=== PATIENT | female | born 1980 | race Caucasian/White ===

== ENCOUNTER 2020-09-30 21:45 | Emergency (ER) | payer OTHER ==
[2020-09-30 21:59] VITALS: BP 123/79; PULSE 85; TEMP 98.9; BMI 30.9
[2020-09-30 23:53] LABS: HCG,QUALITATIVE URINE Negative
[2020-09-30 23:55] LABS: BASO % 0.9 % (0-2.0); EOS % 5.8 % (0-4.5); HEMATOCRIT 36.1 % (32.4-45.2); HEMOGLOBIN 12.3 GM/dL (10.7-15.3); LYMPH % 34.7 % (8-40); MCH 28.3 pg (25.7-33.7); MEAN CELL VOLUME 83.4 fl (80-96); MEAN PLT VOLUME 9.9 fl (7.5-11.1); MONO % 6.9 % (3.8-10.2); NEUT % 51.7 % (42.8-82.8); PLATELET COUNT 230 K/MM3 (134-434); RBC 4.32 M/mm3 (3.60-5.2); RDW 13.2 % (11.6-15.6); WHITE BLOOD COUNT 7.6 K/mm3 (4.0-10.0)
[2020-10-01 00:06] LABS: URINE APPEARANCE CLEAR; URINE BILIRUBIN NEGATIVE (NEGATIVE); URINE COLOR YELLOW; URINE GLUCOSE (UA) 3+ (NEGATIVE); URINE KETONE NEGATIVE (NEGATIVE); URINE LEUK ESTERASE NEGATIVE (NEGATIVE); URINE NITRITE NEGATIVE (NEGATIVE); URINE PROTEIN NEGATIVE (NEGATIVE)
[2020-10-01 00:10] LABS: BLOOD UREA NITROGEN 25.8 mg/dL (7-18)
[2020-10-01 00:11] LABS: ALBUMIN 3.8 g/dl (3.4-5.0)
[2020-10-01 00:14] LABS: CREATININE 0.4 mg/dL (0.55-1.3)
[2020-10-01 00:15] LABS: BILIRUBIN,TOTAL 0.5 mg/dL (0.2-1); TOT PROT 6.7 g/dl (6.4-8.2)
[2020-10-01] MEDS ORDERED: INSULIN REGULAR HUMAN 100 UNITS/ML *VIAL SQ ONE (00:22)
[2020-10-01] MEDS ORDERED: AMPICILLIN NA/SULBACTAM NA 1.5 GM in SODIUM CHLORIDE 100 ML IVPB ONE (00:26)
== END 2020-10-01 01:41 | disposition home or self-care (01) ==
LOC: JER 21:45 → EDBD 21:45 → JER 10-01 01:41
DX: R10.32 Left lower quadrant pain (principal)
CPT/HCPCS: 36415; 80053; 81003; 84703; 85025; 99284-25

== ENCOUNTER 2023-08-02 06:28 | Inpatient (IN) | payer OTHER ==
[2023-08-02] MEDS ORDERED: IBUPROFEN 400 MG TABLET (FP) PO ONE (08:13)
[2023-08-02] MEDS: IBUPROFEN 600 MG TABLET (FP) PO ONE (08:15)
[2023-08-02] MEDS: SODIUM CHLORIDE 0.9% 500 ML INFUS.BAG IV ONE (08:30)
[2023-08-02 08:49] LABS: EPI CELLS 4 /uL (0-25.1); HYALINE CASTS 1 /uL (0-3.1); PH,URINE 6.5 (5.0-8.0); URINE APPEARANCE CLOUDY; URINE BILIRUBIN NEGATIVE (NEGATIVE); URINE COLOR YELLOW; URINE GLUCOSE (UA) NEGATIVE (NEGATIVE); URINE KETONE TRACE (NEGATIVE); URINE LEUK ESTERASE 3+ (NEGATIVE); URINE NITRITE POSITIVE (NEGATIVE); URINE PROTEIN 1+ (NEGATIVE); URINE RBC 19 /uL (0-23.9); URINE WBC 716 /uL (0-25.8)
[2023-08-02 09:07] LABS: BASO % 0.7 % (0-2.0); EOS % 0.4 % (0-4.5); HEMATOCRIT 28.2 % (32.4-45.2); HEMOGLOBIN 9.5 GM/dL (10.7-15.3); LYMPH % 5.9 % (8-40); MCH 27.6 pg (25.7-33.7); MCHC 33.8 g/dl (32.0-36.0); MEAN CELL VOLUME 81.7 fl (80-96); MEAN PLT VOLUME 8.3 fl (7.5-11.1); MONO % 8.5 % (3.8-10.2); NEUT % 84.5 % (42.8-82.8); PLATELET COUNT 376 10^3/uL (134-434); RBC 3.45 M/mm3 (3.60-5.2); RDW 15.2 % (11.6-15.6); WHITE BLOOD COUNT 15.6 K/mm3 (4.0-10.0)
[2023-08-02 10:03] LABS: POTASSIUM 4.4 mmol/L (3.5-5.1)
[2023-08-02 10:05] LABS: BLOOD UREA NITROGEN 10.9 mg/dL (7-18); CALCIUM 8.4 mg/dL (8.5-10.1)
[2023-08-02 10:08] LABS: CREATININE 0.8 mg/dL (0.55-1.3)
[2023-08-02 10:10] LABS: BILIRUBIN,TOTAL 1.4 mg/dL (0.2-1); TOT PROT 7.9 g/dl (6.4-8.2)
[2023-08-02] MEDS ORDERED: CEFTRIAXONE 1 GM/50 ML BAG ONE (10:58)
[2023-08-02] MEDS: CEFTRIAXONE 1,000 MG in DEXTROSE 5%-WATER - 50 ML IVPB ONE (10:59)
[2023-08-02 11:22] LABS: MAGNESIUM 1.7 mg/dL (1.8-2.4)
[2023-08-02] MEDS ORDERED: INSULIN (NOVOLOG) ASPART 100 UNITS/ML 10ML VIAL ONE (11:24)
[2023-08-02] MEDS: INSULIN ASPART SLIDING SCALE (NOVOLOG) 1 VIAL SQ SCH (11:27)
[2023-08-02 14:18] LABS: URINE BACTERIA 64 /uL (0-1359)
[2023-08-02] MEDS: ACETAMINOPHEN 325 MG TABLET (FP) PO PRN (18:57)
[2023-08-02] MEDS: HEPARIN NA (PORCINE) 5,000 UNITS/ML 1ML VIAL SQ SCH (21:35)
[2023-08-02] MEDS: INSULIN (LEVEMIR) 100 UNITS/ML UNITS SQ SCH (21:37)
[2023-08-02] MEDS ORDERED: INSULIN (LEVEMIR) 100 UNITS/ML UNITS SQ SCH (22:00)
[2023-08-03] MEDS: CEFTRIAXONE 1 GM in DEXTROSE 5%-WATER - 50 ML IVPB SCH (09:10)
[2023-08-03] MEDS: SODIUM CHLORIDE 1,000 ML IV SCH ×2 (09:15→16:49)
[2023-08-03 09:33] LABS: BASO % 0.8 % (0-2.0); EOS % 1.6 % (0-4.5); HEMATOCRIT 26.5 % (32.4-45.2); HEMOGLOBIN 9.2 GM/dL (10.7-15.3); LYMPH % 7.4 % (8-40); MCHC 34.6 g/dl (32.0-36.0); MEAN CELL VOLUME 80.8 fl (80-96); MEAN PLT VOLUME 8.9 fl (7.5-11.1); MONO % 7.3 % (3.8-10.2); NEUT % 82.9 % (42.8-82.8); PLATELET COUNT 351 10^3/uL (134-434); RBC 3.28 M/mm3 (3.60-5.2); RDW 15.4 % (11.6-15.6); WHITE BLOOD COUNT 10.6 K/mm3 (4.0-10.0)
[2023-08-03 09:52] LABS: POTASSIUM 3.7 mmol/L (3.5-5.1)
[2023-08-03 10:04] LABS: CALCIUM 8.2 mg/dL (8.5-10.1)
[2023-08-03 10:05] LABS: ALBUMIN 2.6 g/dl (3.4-5.0)
[2023-08-03 10:08] LABS: CREATININE 0.6 mg/dL (0.55-1.3)
[2023-08-03 10:10] LABS: BILIRUBIN,TOTAL 0.8 mg/dL (0.2-1); TOT PROT 7.1 g/dl (6.4-8.2)
[2023-08-03 15:24] VITALS: BMI 27.6
[2023-08-03] MEDS ORDERED: INSULIN (NOVOLOG) ASPART 100 UNITS/ML 10ML VIAL ONE (16:50)
[2023-08-03] MEDS: PHENAZOPYRIDINE HCL 100 MG TABLET (FP) PO SCH (17:46)
[2023-08-04 06:51] VITALS: RESP 18
[2023-08-04 06:53] LABS: BASO % 1.1 % (0-2.0); EOS % 2.2 % (0-4.5); HEMATOCRIT 25.3 % (32.4-45.2); HEMOGLOBIN 8.6 GM/dL (10.7-15.3); MCH 27.7 pg (25.7-33.7); MCHC 34.1 g/dl (32.0-36.0); MEAN CELL VOLUME 81.3 fl (80-96); MEAN PLT VOLUME 9.2 fl (7.5-11.1); MONO % 9.3 % (3.8-10.2); NEUT % 75.4 % (42.8-82.8); PLATELET COUNT 360 10^3/uL (134-434); RBC 3.12 M/mm3 (3.60-5.2); RDW 15.1 % (11.6-15.6); WHITE BLOOD COUNT 8.6 K/mm3 (4.0-10.0)
[2023-08-04 07:01] LABS: POTASSIUM 3.6 mmol/L (3.5-5.1)
[2023-08-04 07:06] LABS: BLOOD UREA NITROGEN 9.9 mg/dL (7-18); CALCIUM 8.3 mg/dL (8.5-10.1)
[2023-08-04 07:09] LABS: CREATININE 0.6 mg/dL (0.55-1.3)
[2023-08-04 07:51] VITALS: BP 111/72; PULSE 88; TEMP 98.6
[2023-08-04] MEDS: CEPHALEXIN MONOHYDRATE 500 MG CAPSULE (UD) PO SCH (09:38)
== END 2023-08-04 11:57 | disposition home or self-care (01) | DRG 463 ==
LOC: JER 06:28 → JERBED 10:05 → J7W 14:11 → OBSVTOIN 08-04 09:11
PROVIDERS: ADMIT Internal Medicine; ATTEND Nurse Practitioner Acute Care
DX: N10 Acute pyelonephritis (principal); E11.9 Type 2 diabetes mellitus without complications; R51.9 Headache, unspecified; B96.20 Unspecified Escherichia coli [E. coli] as the cause of diseases classified elsewhere; R50.9 Fever, unspecified; R53.81 Other malaise; R11.0 Nausea
CPT/HCPCS: 0241U-QW; 36415; 80048; 80053; 81003; 82962; 83735; 84703; 85025; 87086; 87651; 93005; 93010; 99285-25; G0378; J1644

== ENCOUNTER 2023-08-15 09:16 | Inpatient (IN) | payer OTHER ==
[2023-08-15 09:25] VITALS: BMI 27.4
[2023-08-15] MEDS: SODIUM CHLORIDE 0.9% 500 ML INFUS.BAG IV ONE (10:37)
[2023-08-15 10:43] LABS: BASO % 0.9 % (0-2.0); EOS % 0.8 % (0-4.5); HEMATOCRIT 30.3 % (32.4-45.2); LYMPH % 9.2 % (8-40); MCH 27.1 pg (25.7-33.7); MCHC 33.1 g/dl (32.0-36.0); MEAN CELL VOLUME 81.8 fl (80-96); MEAN PLT VOLUME 7.8 fl (7.5-11.1); MONO % 6.8 % (3.8-10.2); NEUT % 82.3 % (42.8-82.8); PLATELET COUNT 470 10^3/uL (134-434); RDW 16.7 % (11.6-15.6); WHITE BLOOD COUNT 16.1 K/mm3 (4.0-10.0)
[2023-08-15 10:45] LABS: EPI CELLS 1 /uL (0-25.1); HCG,QUALITATIVE URINE Negative; HYALINE CASTS 0 /uL (0-3.1); PH,URINE 6.5 (5.0-8.0); URINE APPEARANCE CLEAR; URINE BACTERIA >9,000 /uL (0-1359); URINE BILIRUBIN NEGATIVE (NEGATIVE); URINE COLOR YELLOW; URINE GLUCOSE (UA) NEGATIVE (NEGATIVE); URINE KETONE NEGATIVE (NEGATIVE); URINE LEUK ESTERASE 3+ (NEGATIVE); URINE NITRITE NEGATIVE (NEGATIVE); URINE PROTEIN TRACE (NEGATIVE); URINE RBC 15 /uL (0-23.9); URINE UROBILINOGEN 0.2 mg/dL (0.2-1.0); URINE WBC 648 /uL (0-25.8)
[2023-08-15 11:00] LABS: POTASSIUM 4.3 mmol/L (3.5-5.1)
[2023-08-15 11:02] LABS: BLOOD UREA NITROGEN 9.5 mg/dL (7-18); CALCIUM 9.3 mg/dL (8.5-10.1)
[2023-08-15 11:06] LABS: CREATININE 0.8 mg/dL (0.55-1.3)
[2023-08-15 11:07] LABS: BILIRUBIN,TOTAL 0.7 mg/dL (0.2-1)
[2023-08-15 11:09] LABS: ALBUMIN 3.3 g/dl (3.4-5.0)
[2023-08-15] MEDS ORDERED: CEFTRIAXONE 2 GM in DEXTROSE 5%-WATER - 100 ML IVPB ONE (13:00)
[2023-08-15] MEDS: CEFTRIAXONE 2,000 MG in DEXTROSE 5%-WATER - 50 ML IVPB ONE (13:41)
[2023-08-15] MEDS ORDERED: ACETAMINOPHEN 325 MG TABLET (FP) ONE (14:18)
[2023-08-15] MEDS: ACETAMINOPHEN 325 MG TABLET (FP) PO PRN (14:20)
[2023-08-15] MEDS: metFORMIN HCL 500 MG TABLET (FP) PO SCH (16:25)
[2023-08-15] MEDS: INSULIN ASPART SLIDING SCALE (NOVOLOG) 1 VIAL SQ SCH (16:25)
[2023-08-15] MEDS: FLU VACCINE (FLULAVAL) PF 60 MCG/0.5 ML SYRINGE 2023-2024 IM ONE (17:37)
[2023-08-15] MEDS: ATORVASTATIN CA 10 MG TABLET (FP) PO SCH (21:21)
[2023-08-15] MEDS: PHENAZOPYRIDINE HCL 100 MG TABLET (FP) PO SCH (21:21)
[2023-08-15] MEDS: HEPARIN NA (PORCINE) 5,000 UNITS/ML 1ML VIAL SQ SCH (21:22)
[2023-08-16] MEDS: glipiZIDE 5 MG TABLET (FP) PO SCH (06:23)
[2023-08-16 08:51] LABS: BASO % 0.6 % (0-2.0); EOS % 0.6 % (0-4.5); HEMATOCRIT 28.1 % (32.4-45.2); LYMPH % 10.9 % (8-40); MCH 26.3 pg (25.7-33.7); MEAN CELL VOLUME 82.3 fl (80-96); MEAN PLT VOLUME 8.1 fl (7.5-11.1); MONO % 7.8 % (3.8-10.2); NEUT % 80.1 % (42.8-82.8); PLATELET COUNT 443 10^3/uL (134-434); RBC 3.41 M/mm3 (3.60-5.2); RDW 16.1 % (11.6-15.6); WHITE BLOOD COUNT 14.9 K/mm3 (4.0-10.0)
[2023-08-16] MEDS: SODIUM CHLORIDE 1,000 ML IV SCH (09:06)
[2023-08-16] MEDS: CEFTRIAXONE 1 GM in DEXTROSE 5%-WATER - 50 ML IVPB SCH (09:11)
[2023-08-16 09:17] LABS: POTASSIUM 3.8 mmol/L (3.5-5.1)
[2023-08-16 09:30] LABS: CALCIUM 8.6 mg/dL (8.5-10.1)
[2023-08-16 09:31] LABS: BLOOD UREA NITROGEN 11.5 mg/dL (7-18)
[2023-08-16 09:34] LABS: CREATININE 0.8 mg/dL (0.55-1.3)
[2023-08-16 09:35] LABS: TOT PROT 7.8 g/dl (6.4-8.2)
[2023-08-16 09:36] LABS: BILIRUBIN,TOTAL 0.9 mg/dL (0.2-1)
[2023-08-16] MEDS ORDERED: ENALAPRIL MALEATE 2.5 MG TABLET PO SCH ×2 (10:00)
[2023-08-16] MEDS ORDERED: ONDANSETRON 4 MG/2 ML VIAL IVPUSH PRN (18:12)
[2023-08-16] MEDS: ACETAMINOPHEN 1000 MG/100 ML BAG IVPB ONE (18:27)
[2023-08-16] MEDS: ONDANSETRON 4 MG/2 ML VIAL IVPUSH ONE (18:27)
[2023-08-16] MEDS: FAMOTIDINE 20 MG/50 ML IVPB 20 MG/50 ML MG IVPB ONE ×2 (20:41→20:45)
[2023-08-16 21:29] LABS: CALCIUM 8.5 mg/dL (8.5-10.1)
[2023-08-16 21:30] LABS: ALBUMIN 2.9 g/dl (3.4-5.0); BLOOD UREA NITROGEN 9.6 mg/dL (7-18)
[2023-08-16] MEDS: PIPERACILLIN/TAZOB 3.375 GM 3.375 GM in DEXTROSE 5%-WATER - 50 ML IVPB SCH ×2 (21:30→21:49)
[2023-08-16 21:33] LABS: CREATININE 0.8 mg/dL (0.55-1.3)
[2023-08-16 21:35] LABS: BILIRUBIN,TOTAL 0.7 mg/dL (0.2-1); TOT PROT 7.3 g/dl (6.4-8.2)
[2023-08-17 09:11] LABS: BASO % 0.7 % (0-2.0); EOS % 0.7 % (0-4.5); HEMATOCRIT 26.4 % (32.4-45.2); HEMOGLOBIN 8.7 GM/dL (10.7-15.3); LYMPH % 10.1 % (8-40); MCH 26.9 pg (25.7-33.7); MCHC 32.8 g/dl (32.0-36.0); MEAN PLT VOLUME 8.2 fl (7.5-11.1); MONO % 7.5 % (3.8-10.2); PLATELET COUNT 440 10^3/uL (134-434); RBC 3.23 M/mm3 (3.60-5.2); RDW 16.3 % (11.6-15.6)
[2023-08-17 09:25] LABS: CALCIUM 8.6 mg/dL (8.5-10.1)
[2023-08-17 09:26] LABS: ALBUMIN 2.8 g/dl (3.4-5.0); BLOOD UREA NITROGEN 9.2 mg/dL (7-18)
[2023-08-17 09:29] LABS: CREATININE 0.8 mg/dL (0.55-1.3)
[2023-08-17 09:31] LABS: BILIRUBIN,TOTAL 0.8 mg/dL (0.2-1); TOT PROT 7.4 g/dl (6.4-8.2)
[2023-08-17] MEDS: CEFTRIAXONE 2 GM in DEXTROSE 5%-WATER 100 ML IVPB SCH (15:26)
[2023-08-18] MEDS ORDERED: CEFTRIAXONE 2 GM in DEXTROSE 5%-WATER 100 ML IVPB SCH (10:00)
[2023-08-18 10:08] LABS: HEMATOCRIT 26.7 % (32.4-45.2); HEMOGLOBIN 8.7 GM/dL (10.7-15.3); MCH 26.9 pg (25.7-33.7); MCHC 32.7 g/dl (32.0-36.0); MEAN CELL VOLUME 82.5 fl (80-96); MEAN PLT VOLUME 8.3 fl (7.5-11.1); PLATELET COUNT 477 10^3/uL (134-434); RBC 3.24 M/mm3 (3.60-5.2); RDW 16.2 % (11.6-15.6); WHITE BLOOD COUNT 7.9 K/mm3 (4.0-10.0)
[2023-08-18 10:27] LABS: POTASSIUM 4.2 mmol/L (3.5-5.1)
[2023-08-18 10:31] LABS: ALBUMIN 2.8 g/dl (3.4-5.0); CALCIUM 8.8 mg/dL (8.5-10.1)
[2023-08-18 10:32] LABS: BLOOD UREA NITROGEN 7.2 mg/dL (7-18); MAGNESIUM 1.8 mg/dL (1.8-2.4)
[2023-08-18 10:34] LABS: CREATININE 0.7 mg/dL (0.55-1.3); PHOSPHOROUS 3.2 mg/dL (2.5-4.9)
[2023-08-18 10:36] LABS: BILIRUBIN,TOTAL 0.6 mg/dL (0.2-1); TOT PROT 7.5 g/dl (6.4-8.2)
[2023-08-19 10:21] LABS: HEMATOCRIT 26.9 % (32.4-45.2); HEMOGLOBIN 8.9 GM/dL (10.7-15.3); MEAN CELL VOLUME 81.9 fl (80-96); MEAN PLT VOLUME 8.2 fl (7.5-11.1); PLATELET COUNT 487 10^3/uL (134-434); RBC 3.29 M/mm3 (3.60-5.2); RDW 16.6 % (11.6-15.6); WHITE BLOOD COUNT 7.1 K/mm3 (4.0-10.0)
[2023-08-19 11:26] LABS: POTASSIUM 4.4 mmol/L (3.5-5.1)
[2023-08-19 11:34] LABS: ALBUMIN 2.9 g/dl (3.4-5.0); CALCIUM 8.6 mg/dL (8.5-10.1)
[2023-08-19 11:35] LABS: BLOOD UREA NITROGEN 6.5 mg/dL (7-18); MAGNESIUM 2.1 mg/dL (1.8-2.4)
[2023-08-19 11:37] LABS: CREATININE 0.7 mg/dL (0.55-1.3); PHOSPHOROUS 3.4 mg/dL (2.5-4.9)
[2023-08-19 11:39] LABS: TOT PROT 7.6 g/dl (6.4-8.2)
[2023-08-19 11:40] LABS: BILIRUBIN,TOTAL 0.4 mg/dL (0.2-1)
[2023-08-19 15:20] LABS: HIV INTERPRETATION NEGATIVE (NEGATIVE)
[2023-08-20 08:24] LABS: POTASSIUM 4.1 mmol/L (3.5-5.1)
[2023-08-20 08:36] LABS: HEMATOCRIT 27.2 % (32.4-45.2); HEMOGLOBIN 8.9 GM/dL (10.7-15.3); MCHC 32.9 g/dl (32.0-36.0); PLATELET COUNT 469 10^3/uL (134-434); RBC 3.31 M/mm3 (3.60-5.2); RDW 16.4 % (11.6-15.6); RETICULOCYTES 1.24 % (0.5-1.5)
[2023-08-20 08:37] LABS: ALBUMIN 2.8 g/dl (3.4-5.0); BLOOD UREA NITROGEN 8.3 mg/dL (7-18); CALCIUM 8.7 mg/dL (8.5-10.1)
[2023-08-20 08:40] LABS: CREATININE 0.6 mg/dL (0.55-1.3); PHOSPHOROUS 4.2 mg/dL (2.5-4.9)
[2023-08-20 08:42] LABS: BILIRUBIN,TOTAL 0.5 mg/dL (0.2-1); TOT PROT 7.4 g/dl (6.4-8.2)
[2023-08-21] MEDS: glipiZIDE 5 MG TABLET (FP) PO SCH (06:44)
[2023-08-21] MEDS: PIPERACILLIN/TAZOB 3.375 GM 3.375 GM in DEXTROSE 5%-WATER - 50 ML IVPB SCH (08:05)
[2023-08-21 10:24] LABS: HEMATOCRIT 28.6 % (32.4-45.2); HEMOGLOBIN 9.6 GM/dL (10.7-15.3); MCHC 33.4 g/dl (32.0-36.0); MEAN CELL VOLUME 80.8 fl (80-96); PLATELET COUNT 537 10^3/uL (134-434); RBC 3.54 M/mm3 (3.60-5.2); RDW 16.6 % (11.6-15.6); WHITE BLOOD COUNT 7.6 K/mm3 (4.0-10.0)
[2023-08-21 10:49] LABS: POTASSIUM 4.1 mmol/L (3.5-5.1)
[2023-08-21 10:54] LABS: CALCIUM 9.6 mg/dL (8.5-10.1)
[2023-08-21 10:55] LABS: ALBUMIN 3.1 g/dl (3.4-5.0); BLOOD UREA NITROGEN 13.1 mg/dL (7-18)
[2023-08-21 10:57] LABS: PHOSPHOROUS 4.7 mg/dL (2.5-4.9)
[2023-08-21 10:58] LABS: BILIRUBIN,TOTAL 0.4 mg/dL (0.2-1); CREATININE 0.8 mg/dL (0.55-1.3); TOT PROT 7.9 g/dl (6.4-8.2)
[2023-08-23] MEDS: INSULIN ASPART SLIDING SCALE (NOVOLOG) 1 VIAL SQ SCH (06:27)
[2023-08-23 16:31] LABS: EPI CELLS 10 /uL (0-25.1); HYALINE CASTS 1 /uL (0-3.1); URINE APPEARANCE CLEAR; URINE BILIRUBIN NEGATIVE (NEGATIVE); URINE COLOR DK YELLOW; URINE GLUCOSE (UA) NEGATIVE (NEGATIVE); URINE KETONE NEGATIVE (NEGATIVE); URINE LEUK ESTERASE 2+ (NEGATIVE); URINE NITRITE POSITIVE (NEGATIVE); URINE PROTEIN NEGATIVE (NEGATIVE); URINE RBC 8 /uL (0-23.9); URINE WBC 112 /uL (0-25.8)
[2023-08-24 08:14] LABS: INR 1.18 (0.83-1.09); PROTHROMBIN TIME (PATIENT) 13.7 SEC (9.7-13.0)
[2023-08-24 08:17] LABS: HEMATOCRIT 28.1 % (32.4-45.2); HEMOGLOBIN 9.2 GM/dL (10.7-15.3); MCH 26.9 pg (25.7-33.7); MCHC 32.7 g/dl (32.0-36.0); MEAN CELL VOLUME 82.2 fl (80-96); MEAN PLT VOLUME 8.1 fl (7.5-11.1); PLATELET COUNT 515 10^3/uL (134-434); RBC 3.42 M/mm3 (3.60-5.2); WHITE BLOOD COUNT 6.8 K/mm3 (4.0-10.0)
[2023-08-24 08:42] LABS: POTASSIUM 4.9 mmol/L (3.5-5.1)
[2023-08-24 08:51] LABS: BLOOD UREA NITROGEN 12.6 mg/dL (7-18)
[2023-08-24 08:52] LABS: CREATININE 0.7 mg/dL (0.55-1.3); MAGNESIUM 2.2 mg/dL (1.8-2.4)
[2023-08-24 08:53] LABS: CALCIUM 9.7 mg/dL (8.5-10.1); PHOSPHOROUS 4.7 mg/dL (2.5-4.9)
[2023-08-24] MEDS ORDERED: ONDANSETRON 4 MG/2 ML VIAL IVPUSH PRN ×2 (12:32→12:40)
[2023-08-24] MEDS ORDERED: ACETAMINOPHEN 325 MG TABLET (FP) PO PRN (12:40)
[2023-08-24 13:24] VITALS: RESP 16
[2023-08-24] MEDS: LACTATED RINGERS SOLUTION 1,000 ML IV SCH (14:08)
[2023-08-24 16:10] VITALS: BP 111/70; PULSE 73; TEMP 97.2
[2023-08-24] MEDS: INSULIN ASPART SLIDING SCALE (NOVOLOG) 1 VIAL SQ SCH (16:30)
[2023-08-24] MEDS ORDERED: HEPARIN NA (PORCINE) 5,000 UNITS/ML 1ML VIAL SQ SCH (22:00)
[2023-08-24] MEDS ORDERED: PHENAZOPYRIDINE HCL 100 MG TABLET (FP) PO SCH (22:00)
[2023-08-25] MEDS ORDERED: glipiZIDE 5 MG TABLET (FP) PO SCH (07:00)
[2023-08-25] MEDS ORDERED: CEFTRIAXONE 2 GM in DEXTROSE 5%-WATER 100 ML IVPB SCH (10:00)
== END 2023-08-24 17:44 | disposition home or self-care (01) | DRG 463 ==
LOC: JER 09:16 → JERBED 11:24 → J6S 14:34
PROVIDERS: ADMIT Internal Medicine; ATTEND Internal Medicine
PROC: 0TJB8ZZ Inspection of Bladder, Via Natural or Artificial Opening Endoscopic (ICD-10-PCS; principal; 2023-08-24 15:00)
PROC: BT00ZZZ Plain Radiography of Bladder (ICD-10-PCS; 2023-08-24 15:00)
DX: N12 Tubulo-interstitial nephritis, not specified as acute or chronic (principal); E11.65 Type 2 diabetes mellitus with hyperglycemia; D63.8 Anemia in other chronic diseases classified elsewhere; Z79.84 Long term (current) use of oral hypoglycemic drugs
CPT/HCPCS: 0241U-QW; 36415; 70492-TC; 71270-TC; 74177-TC; 76775-TC; 80048; 80053; 81003; 82728; 82962; 83036; 83540; 83550; 83605; 83615; 83690; 83735; 84100; 84443; 84702; 84703; 85025; 85027; 85045; 85610; 85651; 86038; 86140; 86160; 86225; 86480; 86850; 86900; 86901; 87040; 87086; 87186; 87389; 90686; 93306-TC; 94760; 99285-25; J0131; J1644; Q9967

== ENCOUNTER 2023-10-23 18:50 | Emergency (ER) | payer OTHER ==
[2023-10-23 18:59] VITALS: BP 109/62; PULSE 102; RESP 18; TEMP 100.4; BMI 26.6
[2023-10-23] MEDS ORDERED: ACETAMINOPHEN INJECTION 100 ML IVPB ONE (19:39)
[2023-10-23] MEDS ORDERED: ONDANSETRON 4 MG/2 ML VIAL ONE (19:39)
[2023-10-23] MEDS: SODIUM CHLORIDE 0.9% 500 ML INFUS.BAG IV ONE (19:56)
[2023-10-23] MEDS: ONDANSETRON 4 MG/2 ML VIAL IVPUSH ONE (19:57)
[2023-10-23] MEDS: ACETAMINOPHEN 1000 MG/100 ML BAG IVPB ONE (19:57)
[2023-10-23 20:06] LABS: BASO % 0.8 % (0-2.0); EOS % 0.5 % (0-4.5); HEMATOCRIT 27.2 % (32.4-45.2); HEMOGLOBIN 8.8 GM/dL (10.7-15.3); LYMPH % 13.9 % (8-40); MCH 26.3 pg (25.7-33.7); MCHC 32.5 g/dl (32.0-36.0); MEAN CELL VOLUME 80.9 fl (80-96); MEAN PLT VOLUME 7.8 fl (7.5-11.1); MONO % 9.7 % (3.8-10.2); NEUT % 75.1 % (42.8-82.8); PLATELET COUNT 355 10^3/uL (134-434); RBC 3.36 M/mm3 (3.60-5.2); RDW 15.6 % (11.6-15.6); WHITE BLOOD COUNT 13.2 K/mm3 (4.0-10.0)
[2023-10-23 20:25] LABS: POTASSIUM 4.2 mmol/L (3.5-5.1)
[2023-10-23 20:29] LABS: BLOOD UREA NITROGEN 10.9 mg/dL (7-18); CALCIUM 8.7 mg/dL (8.5-10.1); MAGNESIUM 1.9 mg/dL (1.8-2.4)
[2023-10-23 20:32] LABS: CREATININE 0.9 mg/dL (0.55-1.3); PHOSPHOROUS 3.1 mg/dL (2.5-4.9)
[2023-10-23 20:34] LABS: TOT PROT 7.6 g/dl (6.4-8.2)
[2023-10-23 20:35] LABS: BILIRUBIN,TOTAL 0.8 mg/dL (0.2-1)
[2023-10-23 21:41] LABS: EPI CELLS 14 /uL (0-25.1); HYALINE CASTS 0 /uL (0-3.1); PH,URINE 6.5 (5.0-8.0); URINE APPEARANCE CLOUDY; URINE BACTERIA >9,000 /uL (0-1359); URINE BILIRUBIN NEGATIVE (NEGATIVE); URINE COLOR YELLOW; URINE GLUCOSE (UA) NEGATIVE (NEGATIVE); URINE KETONE NEGATIVE (NEGATIVE); URINE LEUK ESTERASE 3+ (NEGATIVE); URINE NITRITE POSITIVE (NEGATIVE); URINE PROTEIN 1+ (NEGATIVE); URINE RBC 16 /uL (0-23.9); URINE WBC 741 /uL (0-25.8)
[2023-10-23] MEDS ORDERED: CEPHALEXIN MONOHYDRATE 500 MG CAPSULE (UD) ONE (21:57)
[2023-10-23] MEDS: CEPHALEXIN MONOHYDRATE 500 MG CAPSULE (UD) PO ONE (22:01)
== END 2023-10-23 22:11 | disposition home or self-care (01) ==
LOC: JER 18:50
PROC: 3E033NZ Introduction of Analgesics, Hypnotics, Sedatives into Peripheral Vein, Percutaneous Approach (ICD-10-PCS; principal; 2023-10-23)
PROC: 3E033GC Introduction of Other Therapeutic Substance into Peripheral Vein, Percutaneous Approach (ICD-10-PCS; 2023-10-23)
DX: N39.0 Urinary tract infection, site not specified (principal); R50.9 Fever, unspecified; R51.9 Headache, unspecified; R11.2 Nausea with vomiting, unspecified; R10.33 Periumbilical pain; R00.0 Tachycardia, unspecified; Z20.822 Contact with and (suspected) exposure to COVID-19
CPT/HCPCS: 0241U-QW; 36415; 71045-TC-FY; 80053; 81003; 83690; 83735; 84100; 84703; 85025; 87086; 87186; 93005; 93010; 99285-25; J0131

== ENCOUNTER 2023-11-27 15:40 | Inpatient (IN) | payer OTHER ==
[2023-11-27 15:47] VITALS: BMI 24.2
[2023-11-27] MEDS ORDERED: ACETAMINOPHEN INJECTION 100 ML IVPB ONE ×2 (16:21→23:07)
[2023-11-27] MEDS ORDERED: KETOROLAC TROMETHAMINE 30 MG/1 ML VIAL ONE (16:21)
[2023-11-27] MEDS ORDERED: ONDANSETRON 4 MG/2 ML VIAL ONE (16:21)
[2023-11-27] MEDS ORDERED: CEFTRIAXONE 1 GM/50 ML BAG ONE (16:22)
[2023-11-27] MEDS: SODIUM CHLORIDE 0.9% 500 ML INFUS.BAG IV ONE ×2 (16:39→19:50)
[2023-11-27] MEDS: ONDANSETRON 4 MG/2 ML VIAL IVPUSH ONE (16:40)
[2023-11-27] MEDS: ACETAMINOPHEN 1000 MG/100 ML BAG IVPB ONE (16:40)
[2023-11-27] MEDS: CEFTRIAXONE 1 GM in DEXTROSE 5%-WATER - 100 ML IVPB ONE (16:40)
[2023-11-27] MEDS: KETOROLAC TROMETHAMINE 30 MG/1 ML VIAL IVPUSH ONE (16:40)
[2023-11-27 16:53] LABS: BASO % 0.4 % (0-2.0); EOS % 0.3 % (0-4.5); HEMATOCRIT 22.5 % (32.4-45.2); HEMOGLOBIN 7.6 GM/dL (10.7-15.3); LYMPH % 5.9 % (8-40); MCH 27.1 pg (25.7-33.7); MCHC 33.8 g/dl (32.0-36.0); MEAN CELL VOLUME 80.2 fl (80-96); MEAN PLT VOLUME 8.4 fl (7.5-11.1); MONO % 6.5 % (3.8-10.2); NEUT % 86.9 % (42.8-82.8); PLATELET COUNT 324 10^3/uL (134-434); RBC 2.81 M/mm3 (3.60-5.2); RDW 15.6 % (11.6-15.6); WHITE BLOOD COUNT 14.4 K/mm3 (4.0-10.0)
[2023-11-27 17:19] LABS: ALBUMIN 2.8 g/dl (3.4-5.0); BLOOD UREA NITROGEN 19.6 mg/dL (7-18); CALCIUM 8.7 mg/dL (8.5-10.1)
[2023-11-27 17:22] LABS: CREATININE 1.2 mg/dL (0.55-1.3)
[2023-11-27 17:24] LABS: BILIRUBIN,TOTAL 0.9 mg/dL (0.2-1); TOT PROT 7.1 g/dl (6.4-8.2)
[2023-11-27 17:39] LABS: EPI CELLS 3 /uL (0-25.1); HYALINE CASTS 0 /uL (0-3.1); URINE APPEARANCE CLOUDY; URINE BACTERIA 826 /uL (0-1359); URINE BILIRUBIN NEGATIVE (NEGATIVE); URINE COLOR YELLOW; URINE GLUCOSE (UA) NEGATIVE (NEGATIVE); URINE KETONE NEGATIVE (NEGATIVE); URINE LEUK ESTERASE 3+ (NEGATIVE); URINE NITRITE NEGATIVE (NEGATIVE); URINE PROTEIN 2+ (NEGATIVE); URINE RBC 75 /uL (0-23.9); URINE WBC 706 /uL (0-25.8)
[2023-11-27] MEDS ORDERED: ONDANSETRON 4 MG/2 ML VIAL IVPUSH PRN (22:49)
[2023-11-27] MEDS: SODIUM CHLORIDE 1,000 ML IV STA (23:25)
[2023-11-27] MEDS: ACETAMINOPHEN 1000 MG/100 ML BAG IVPB SCH (23:25)
[2023-11-28 01:18] LABS: POTASSIUM 5.1 mmol/L (3.5-5.1)
[2023-11-28 01:19] LABS: CALCIUM 8.1 mg/dL (8.5-10.1)
[2023-11-28 01:20] LABS: BLOOD UREA NITROGEN 20.9 mg/dL (7-18)
[2023-11-28 01:23] LABS: CREATININE 1.3 mg/dL (0.55-1.3)
[2023-11-28] MEDS: INSULIN (LEVEMIR) 100 UNITS/ML UNITS SQ ONE (01:33)
[2023-11-28] MEDS: SODIUM CHLORIDE 1,000 ML IV SCH (01:34)
[2023-11-28] MEDS ORDERED: KETOROLAC TROMETHAMINE 15 MG/ML VIAL IVPUSH SCH (03:00)
[2023-11-28] MEDS: ACETAMINOPHEN 1000 MG/100 ML BAG IVPB PRN (06:03)
[2023-11-28] MEDS ORDERED: INSULIN ASPART SLIDING SCALE (NOVOLOG) 1 VIAL SQ SCH ×2 (07:00)
[2023-11-28] MEDS: CEFTRIAXONE 1 GM in DEXTROSE 5%-WATER - 50 ML IVPB SCH (10:09)
[2023-11-28 10:30] LABS: BASO % 0.5 % (0-2.0); EOS % 0.7 % (0-4.5); HEMATOCRIT 24.8 % (32.4-45.2); HEMOGLOBIN 8.1 GM/dL (10.7-15.3); LYMPH % 5.4 % (8-40); MCH 26.7 pg (25.7-33.7); MCHC 32.9 g/dl (32.0-36.0); MEAN CELL VOLUME 81.3 fl (80-96); MEAN PLT VOLUME 8.3 fl (7.5-11.1); MONO % 7.5 % (3.8-10.2); NEUT % 85.9 % (42.8-82.8); PLATELET COUNT 332 10^3/uL (134-434); RBC 3.05 M/mm3 (3.60-5.2); RDW 15.8 % (11.6-15.6); WHITE BLOOD COUNT 13.9 K/mm3 (4.0-10.0)
[2023-11-28 11:11] LABS: ALBUMIN 2.7 g/dl (3.4-5.0); CALCIUM 8.3 mg/dL (8.5-10.1)
[2023-11-28 11:12] LABS: BLOOD UREA NITROGEN 16.7 mg/dL (7-18)
[2023-11-28 11:16] LABS: TOT PROT 7.2 g/dl (6.4-8.2)
[2023-11-28 11:17] LABS: BILIRUBIN,TOTAL 0.7 mg/dL (0.2-1)
[2023-11-28] MEDS: INSULIN ASPART SLIDING SCALE (NOVOLOG) 1 VIAL SQ SCH (11:23)
[2023-11-28 14:10] LABS: HIV INTERPRETATION NEGATIVE (NEGATIVE)
[2023-11-28] MEDS: INSULIN (LEVEMIR) 100 UNITS/ML UNITS SQ SCH (21:01)
[2023-11-28] MEDS: KETOROLAC TROMETHAMINE 15 MG/ML VIAL IVPUSH ONE (22:17)
[2023-11-28] MEDS: MELATONIN 5 MG TABLETS PO PRN (23:22)
[2023-11-29 10:10] LABS: BASO % 0.4 % (0-2.0); EOS % 1.5 % (0-4.5); HEMATOCRIT 20.6 % (32.4-45.2); LYMPH % 8.1 % (8-40); MCH 27.3 pg (25.7-33.7); MEAN CELL VOLUME 80.2 fl (80-96); MEAN PLT VOLUME 8.5 fl (7.5-11.1); MONO % 7.4 % (3.8-10.2); NEUT % 82.6 % (42.8-82.8); PLATELET COUNT 335 10^3/uL (134-434); RBC 2.56 M/mm3 (3.60-5.2); RDW 15.8 % (11.6-15.6); WHITE BLOOD COUNT 10.6 K/mm3 (4.0-10.0)
[2023-11-29 10:27] LABS: POTASSIUM 3.6 mmol/L (3.5-5.1)
[2023-11-29 10:33] LABS: ALBUMIN 2.4 g/dl (3.4-5.0); BLOOD UREA NITROGEN 11.8 mg/dL (7-18); CALCIUM 8.2 mg/dL (8.5-10.1)
[2023-11-29 10:36] LABS: CREATININE 0.8 mg/dL (0.55-1.3)
[2023-11-29 10:38] LABS: BILIRUBIN,TOTAL 0.4 mg/dL (0.2-1); TOT PROT 6.1 g/dl (6.4-8.2)
[2023-11-29] MEDS: POLYETHYLENE GLYCOL (HEALTHYLAX) 3350 17 GM PACKET PO SCH (11:27)
[2023-11-30 09:43] LABS: BASO % 0.9 % (0-2.0); EOS % 1.6 % (0-4.5); HEMATOCRIT 25.2 % (32.4-45.2); HEMOGLOBIN 8.6 GM/dL (10.7-15.3); LYMPH % 16.2 % (8-40); MCH 27.9 pg (25.7-33.7); MCHC 34.3 g/dl (32.0-36.0); MEAN CELL VOLUME 81.4 fl (80-96); MEAN PLT VOLUME 8.6 fl (7.5-11.1); MONO % 8.6 % (3.8-10.2); NEUT % 72.7 % (42.8-82.8); PLATELET COUNT 424 10^3/uL (134-434); WHITE BLOOD COUNT 10.2 K/mm3 (4.0-10.0)
[2023-11-30 09:56] LABS: POTASSIUM 4.7 mmol/L (3.5-5.1)
[2023-11-30 10:07] LABS: CALCIUM 9.2 mg/dL (8.5-10.1)
[2023-11-30 10:08] LABS: BLOOD UREA NITROGEN 8.9 mg/dL (7-18)
[2023-11-30 10:11] LABS: CREATININE 0.8 mg/dL (0.55-1.3)
[2023-11-30 11:46] VITALS: BP 103/69; PULSE 76; RESP 17; TEMP 99
[2023-12-01 13:08] LABS: GLIADIN ANTIBODY IGA 7 units (0-19); GLIADIN ANTIBODY IGG 1 units (0-19)
== END 2023-11-30 11:53 | disposition home or self-care (01) | DRG 463 ==
LOC: JER 15:40 → JERBED 21:29 → OBSVTOIN 22:45 → J5S 11-28 01:17
PROVIDERS: ADMIT Internal Medicine; ATTEND Internal Medicine
PROC: 30233N1 Transfusion of Nonautologous Red Blood Cells into Peripheral Vein, Percutaneous Approach (ICD-10-PCS; principal; 2023-11-29)
DX: N39.0 Urinary tract infection, site not specified (principal); B96.20 Unspecified Escherichia coli [E. coli] as the cause of diseases classified elsewhere; E11.9 Type 2 diabetes mellitus without complications; D50.9 Iron deficiency anemia, unspecified; E87.1 Hypo-osmolality and hyponatremia; R16.0 Hepatomegaly, not elsewhere classified
CPT/HCPCS: 36415; 36430; 74176-TC; 76705-TC; 80048; 80053; 81003; 82607; 82728; 82962; 83516; 83540; 83550; 83690; 84439; 84443; 84703; 85025; 86705; 86707; 86708; 86850; 86900; 86901; 86922; 87086; 87186; 87340; 87350; 87389; 87517; 87522; 93005; 93010; 99285-25; G0378; J0131; P9038; P9058

== ENCOUNTER 2024-02-04 14:11 | Inpatient (IN) | payer OTHER ==
[2024-02-04] MEDS ORDERED: ACETAMINOPHEN INJECTION 100 ML ONE ×2 (14:57→22:22)
[2024-02-04] MEDS: SODIUM CHLORIDE 1,000 ML IV STA ×2 (15:00→23:47)
[2024-02-04] MEDS: ACETAMINOPHEN 1000 MG/100 ML BAG IVPB ONE ×2 (15:00→22:33)
[2024-02-04 15:18] LABS: VENOUS BASE EXCESS -1.8 mmol/L (-2-2); VENOUS PCO2 38.9 mmHg (38-52); VENOUS PH 7.389 (7.310-7.410)
[2024-02-04 15:19] LABS: HEMATOCRIT 28.9 % (32.4-45.2); HEMOGLOBIN 9.5 GM/dL (10.7-15.3); MCH 27.5 pg (25.7-33.7); MCHC 32.9 g/dl (32.0-36.0); MEAN CELL VOLUME 83.8 fl (80-96); MEAN PLT VOLUME 7.8 fl (7.5-11.1); PLATELET COUNT 417 10^3/uL (134-434); RBC 3.45 M/mm3 (3.60-5.2); RDW 14.2 % (11.6-15.6); WHITE BLOOD COUNT 25.5 K/mm3 (4.0-10.0)
[2024-02-04 15:25] LABS: INR 1.22 (0.83-1.09); PROTHROMBIN TIME (PATIENT) 13.9 SEC (9.7-13.0)
[2024-02-04 15:28] LABS: ACTIVATED PTT 26.7 SECONDS (25.2-36.5)
[2024-02-04 15:38] LABS: ANISOCYTOSIS 0; MACROCYTOSIS 0
[2024-02-04 15:41] LABS: POTASSIUM 4.1 mmol/L (3.5-5.1)
[2024-02-04] MEDS ORDERED: METOCLOPRAMIDE HCL INJECTION 10 MG/2 ML VIAL ONE (15:41)
[2024-02-04 15:43] LABS: CALCIUM 8.3 mg/dL (8.5-10.1)
[2024-02-04 15:44] LABS: ALBUMIN 2.8 g/dl (3.4-5.0); BLOOD UREA NITROGEN 20.1 mg/dL (7-18)
[2024-02-04] MEDS: METOCLOPRAMIDE HCL INJECTION 10 MG/2 ML VIAL IVPB ONE (15:44)
[2024-02-04 15:47] LABS: CREATININE 1.5 mg/dL (0.55-1.3)
[2024-02-04 15:48] LABS: BILIRUBIN,TOTAL 0.8 mg/dL (0.2-1); TOT PROT 6.6 g/dl (6.4-8.2)
[2024-02-04] MEDS: SODIUM CHLORIDE 0.9% 1000 ML INFUS.BAG IV ONE (16:09)
[2024-02-04 16:37] LABS: HIV INTERPRETATION NEGATIVE (NEGATIVE)
[2024-02-04 17:36] LABS: EPI CELLS 4 /uL (0-25.1); HYALINE CASTS 0 /uL (0-3.1); URINE APPEARANCE TURBID; URINE BACTERIA 7572 /uL (0-1359); URINE BILIRUBIN NEGATIVE (NEGATIVE); URINE COLOR YELLOW; URINE GLUCOSE (UA) TRACE (NEGATIVE); URINE KETONE NEGATIVE (NEGATIVE); URINE LEUK ESTERASE 3+ (NEGATIVE); URINE NITRITE POSITIVE (NEGATIVE); URINE PROTEIN 2+ (NEGATIVE); URINE RBC 454 /uL (0-23.9); URINE UROBILINOGEN 0.2 mg/dL (0.2-1.0); URINE WBC 4612 /uL (0-25.8)
[2024-02-04] MEDS: SODIUM CHLORIDE 0.9% 1000 ML INFUS.BAG IV STA (18:59)
[2024-02-04] MEDS: CEFTRIAXONE 1,000 MG in DEXTROSE 5%-WATER - 50 ML IVPB ONE (19:00)
[2024-02-04] MEDS ORDERED: cefTRIAXone SODIUM 1 GM VIAL ONE (19:00)
[2024-02-04] MEDS ORDERED: CEFTRIAXONE 1 GM/50 ML BAG ONE (19:01)
[2024-02-04] MEDS ORDERED: KETOROLAC TROMETHAMINE 15 MG/ML VIAL ONE (20:06)
[2024-02-04] MEDS ORDERED: ONDANSETRON 4 MG/2 ML VIAL ONE (20:20)
[2024-02-04] MEDS: KETOROLAC TROMETHAMINE 15 MG/ML VIAL IVPUSH ONE (20:35)
[2024-02-04] MEDS: ONDANSETRON 4 MG/2 ML VIAL IVPUSH ONE (20:35)
[2024-02-04] MEDS ORDERED: ONDANSETRON 4 MG/2 ML VIAL IVPUSH PRN (21:35)
[2024-02-04] MEDS: ACETAMINOPHEN 1000 MG/100 ML BAG IVPB SCH (22:33)
[2024-02-05] MEDS ORDERED: NOREPINEPHRINE BITARTRATE 4 MG/4 ML ML IV ONE (00:30)
[2024-02-05] MEDS: NOREPINEPHRINE BITARTRATE 4,000 MCG in DEXTROSE 5%-WATER - 496 ML IV SCH (00:46)
[2024-02-05] MEDS ORDERED: VANCOMYCIN 1 GRAM (PRE-DOCKED) 1,000 MG/250 ML BAG IVPB ONE (01:51)
[2024-02-05] MEDS: LACTATED RINGERS SOLUTION 1,000 ML/1,000 ML INFUS.BAG IV SCH (02:02)
[2024-02-05] MEDS: VANCOMYCIN/WATER FOR INJ (PEG) 1,000 MG/200 ML BAG IVPB ONE (02:17)
[2024-02-05] MEDS: INSULIN ASPART SLIDING SCALE (NOVOLOG) 1 VIAL SQ SCH ×2 (02:18→06:26)
[2024-02-05] MEDS: PANTOPRAZOLE 40 MG TABLET PO SCH (06:27)
[2024-02-05 07:06] LABS: HEMATOCRIT 25.3 % (32.4-45.2); HEMOGLOBIN 8.2 GM/dL (10.7-15.3); MCH 27.6 pg (25.7-33.7); MCHC 32.3 g/dl (32.0-36.0); MEAN CELL VOLUME 85.3 fl (80-96); MEAN PLT VOLUME 7.9 fl (7.5-11.1); PLATELET COUNT 361 10^3/uL (134-434); RBC 2.97 M/mm3 (3.60-5.2); RDW 14.2 % (11.6-15.6); WHITE BLOOD COUNT 22.6 K/mm3 (4.0-10.0)
[2024-02-05 07:13] LABS: INR 1.35 (0.83-1.09); PROTHROMBIN TIME (PATIENT) 15.4 SEC (9.7-13.0)
[2024-02-05 07:15] LABS: ACTIVATED PTT 26.5 SECONDS (25.2-36.5)
[2024-02-05 07:27] LABS: POTASSIUM 3.8 mmol/L (3.5-5.1)
[2024-02-05 07:30] LABS: MAGNESIUM 1.6 mg/dL (1.8-2.4)
[2024-02-05 07:31] LABS: ALBUMIN 2.3 g/dl (3.4-5.0); BLOOD UREA NITROGEN 15.8 mg/dL (7-18)
[2024-02-05 07:32] LABS: CREATININE 1.1 mg/dL (0.55-1.3)
[2024-02-05 07:34] LABS: PHOSPHOROUS 3.4 mg/dL (2.5-4.9)
[2024-02-05 07:35] LABS: TOT PROT 5.8 g/dl (6.4-8.2)
[2024-02-05 07:36] LABS: BILIRUBIN,TOTAL 0.6 mg/dL (0.2-1)
[2024-02-05] MEDS: ENOXAPARIN NA (PORCINE) 40 MG/0.4 ML DISP.SYRIN SQ SCH (10:30)
[2024-02-05] MEDS: CEFTRIAXONE 1 GM in DEXTROSE 5%-WATER - 50 ML IVPB SCH (10:30)
[2024-02-05] MEDS: MAGNESIUM 2GM/50ML STERILE WATER IVPB IVPB ONE (10:31)
[2024-02-05] MEDS: MEROPENEM 1 GM in DEXTROSE 5%-WATER 100 ML IVPB SCH (14:15)
[2024-02-05] MEDS: MUPIROCIN 2% TOPICAL OINTMENT FOR DECOLONIZATION NS SCH (21:30)
[2024-02-06 06:16] LABS: HEMATOCRIT 24.5 % (32.4-45.2); MCH 27.7 pg (25.7-33.7); MCHC 32.7 g/dl (32.0-36.0); MEAN CELL VOLUME 84.7 fl (80-96); MEAN PLT VOLUME 8.1 fl (7.5-11.1); PLATELET COUNT 341 10^3/uL (134-434); RBC 2.89 M/mm3 (3.60-5.2); RDW 14.1 % (11.6-15.6); WHITE BLOOD COUNT 15.8 K/mm3 (4.0-10.0)
[2024-02-06 06:31] LABS: POTASSIUM 3.6 mmol/L (3.5-5.1)
[2024-02-06 06:35] LABS: ALBUMIN 2.2 g/dl (3.4-5.0); CALCIUM 8.3 mg/dL (8.5-10.1); MAGNESIUM 1.9 mg/dL (1.8-2.4)
[2024-02-06 06:36] LABS: BLOOD UREA NITROGEN 12.1 mg/dL (7-18)
[2024-02-06 06:38] LABS: CREATININE 0.9 mg/dL (0.55-1.3)
[2024-02-06 06:39] LABS: PHOSPHOROUS 2.9 mg/dL (2.5-4.9)
[2024-02-06 06:40] LABS: BILIRUBIN,TOTAL 0.6 mg/dL (0.2-1); TOT PROT 5.9 g/dl (6.4-8.2)
[2024-02-06 14:13] VITALS: BMI 28.1
[2024-02-07 07:26] LABS: BASO % 0.8 % (0-2.0); EOS % 1.7 % (0-4.5); HEMATOCRIT 23.3 % (32.4-45.2); HEMOGLOBIN 7.8 GM/dL (10.7-15.3); LYMPH % 14.9 % (8-40); MCHC 33.3 g/dl (32.0-36.0); MEAN CELL VOLUME 83.8 fl (80-96); MEAN PLT VOLUME 8.6 fl (7.5-11.1); MONO % 6.9 % (3.8-10.2); NEUT % 75.7 % (42.8-82.8); PLATELET COUNT 344 10^3/uL (134-434); RBC 2.78 M/mm3 (3.60-5.2); RDW 13.8 % (11.6-15.6)
[2024-02-07 07:39] LABS: POTASSIUM 3.9 mmol/L (3.5-5.1)
[2024-02-07 07:40] LABS: CALCIUM 8.1 mg/dL (8.5-10.1)
[2024-02-07 07:41] LABS: ALBUMIN 2.2 g/dl (3.4-5.0); BLOOD UREA NITROGEN 13.4 mg/dL (7-18); MAGNESIUM 1.7 mg/dL (1.8-2.4)
[2024-02-07 07:44] LABS: CREATININE 0.9 mg/dL (0.55-1.3)
[2024-02-07 07:46] LABS: BILIRUBIN,TOTAL 0.4 mg/dL (0.2-1); TOT PROT 5.9 g/dl (6.4-8.2)
[2024-02-07] MEDS ORDERED: CEFAZOLIN SODIUM 2 GM VIAL IVPB SCH (08:30)
[2024-02-07] MEDS ORDERED: ACETAMINOPHEN 500 MG TABLET (FP) PO PRN (09:22)
[2024-02-07] MEDS: CEFAZOLIN SODIUM 2 GM in DEXTROSE 5%-WATER 100 ML IVPB SCH (09:30)
[2024-02-07] MEDS: ASCORBIC ACID 500 MG TABLET (FP) PO SCH (09:30)
[2024-02-07] MEDS: MAGNESIUM OXIDE 400 MG TABLET (FP) PO ONE (10:46)
[2024-02-07] MEDS: FERROUS SO4 325 MG TABLET (FP) PO SCH (12:41)
[2024-02-07] MEDS ORDERED: ONDANSETRON 4 MG/2 ML VIAL IVPUSH PRN (18:50)
[2024-02-07] MEDS: INSULIN ASPART SLIDING SCALE (NOVOLOG) 1 VIAL SQ SCH (21:21)
[2024-02-07] MEDS: ATORVASTATIN CA 10 MG TABLET (FP) PO SCH (21:23)
[2024-02-07] MEDS ORDERED: MUPIROCIN 2% TOPICAL OINTMENT FOR DECOLONIZATION NS SCH (22:00)
[2024-02-07] MEDS ORDERED: ATORVASTATIN CA 10 MG TABLET (FP) PO SCH (22:00)
[2024-02-08] MEDS ORDERED: CEFAZOLIN SODIUM 2 GM VIAL ONE (01:05)
[2024-02-08] MEDS: CEFAZOLIN SODIUM 2 GM in DEXTROSE 5%-WATER 100 ML IVPB SCH (01:10)
[2024-02-08] MEDS: PANTOPRAZOLE 40 MG TABLET PO SCH (06:00)
[2024-02-08] MEDS: FERROUS SO4 325 MG TABLET (FP) PO SCH (07:41)
[2024-02-08 07:56] LABS: BASO % 0.6 % (0-2.0); EOS % 2.2 % (0-4.5); HEMATOCRIT 24.3 % (32.4-45.2); HEMOGLOBIN 8.3 GM/dL (10.7-15.3); LYMPH % 17.8 % (8-40); MCH 28.6 pg (25.7-33.7); MCHC 34.1 g/dl (32.0-36.0); MEAN PLT VOLUME 7.9 fl (7.5-11.1); MONO % 8.9 % (3.8-10.2); NEUT % 70.5 % (42.8-82.8); PLATELET COUNT 398 10^3/uL (134-434); RBC 2.89 M/mm3 (3.60-5.2); RDW 13.8 % (11.6-15.6); WHITE BLOOD COUNT 7.8 K/mm3 (4.0-10.0)
[2024-02-08 08:09] LABS: POTASSIUM 4.1 mmol/L (3.5-5.1)
[2024-02-08 08:18] LABS: ALBUMIN 2.4 g/dl (3.4-5.0); BLOOD UREA NITROGEN 14.5 mg/dL (7-18); CALCIUM 8.8 mg/dL (8.5-10.1); MAGNESIUM 1.9 mg/dL (1.8-2.4)
[2024-02-08 08:21] LABS: CREATININE 0.9 mg/dL (0.55-1.3)
[2024-02-08 08:23] LABS: BILIRUBIN,TOTAL 0.5 mg/dL (0.2-1); TOT PROT 6.3 g/dl (6.4-8.2)
[2024-02-08] MEDS: ASCORBIC ACID 500 MG TABLET (FP) PO SCH (09:58)
[2024-02-08] MEDS: ENOXAPARIN NA (PORCINE) 40 MG/0.4 ML DISP.SYRIN SQ SCH (09:58)
[2024-02-08] MEDS: INSULIN (LEVEMIR) 100 UNITS/ML UNITS SQ SCH (21:11)
[2024-02-09 06:50] LABS: EPI CELLS 20 /uL (0-25.1); HYALINE CASTS 1 /uL (0-3.1); URINE APPEARANCE CLEAR; URINE BACTERIA 23 /uL (0-1359); URINE BILIRUBIN NEGATIVE (NEGATIVE); URINE COLOR YELLOW; URINE GLUCOSE (UA) NEGATIVE (NEGATIVE); URINE KETONE NEGATIVE (NEGATIVE); URINE LEUK ESTERASE 3+ (NEGATIVE); URINE NITRITE NEGATIVE (NEGATIVE); URINE PROTEIN NEGATIVE (NEGATIVE); URINE RBC 9 /uL (0-23.9); URINE UROBILINOGEN 0.2 mg/dL (0.2-1.0); URINE WBC 132 /uL (0-25.8)
[2024-02-09 09:02] LABS: EOS % 2.4 % (0-4.5); HEMOGLOBIN 8.7 GM/dL (10.7-15.3); LYMPH % 25.7 % (8-40); MCH 28.4 pg (25.7-33.7); MCHC 33.6 g/dl (32.0-36.0); MEAN CELL VOLUME 84.5 fl (80-96); MEAN PLT VOLUME 7.8 fl (7.5-11.1); NEUT % 61.9 % (42.8-82.8); PLATELET COUNT 464 10^3/uL (134-434); RBC 3.07 M/mm3 (3.60-5.2); RDW 13.7 % (11.6-15.6); WHITE BLOOD COUNT 6.3 K/mm3 (4.0-10.0)
[2024-02-09 09:17] VITALS: RESP 16
[2024-02-09 09:24] LABS: ALBUMIN 2.7 g/dl (3.4-5.0); BLOOD UREA NITROGEN 16.4 mg/dL (7-18); CALCIUM 8.9 mg/dL (8.5-10.1)
[2024-02-09 09:27] LABS: PHOSPHOROUS 4.3 mg/dL (2.5-4.9)
[2024-02-09 09:28] LABS: BILIRUBIN,TOTAL 0.3 mg/dL (0.2-1); TOT PROT 7.1 g/dl (6.4-8.2)
[2024-02-09 15:36] VITALS: BP 99/69; PULSE 81; TEMP 98.4
== END 2024-02-09 16:38 | disposition home or self-care (01) | DRG 720 ==
LOC: JER 14:11 → JERBED 21:55 → JICU 02-05 02:39 → J6W 02-07 18:44
PROVIDERS: ADMIT Internal Medicine Pulmonary Disease; ATTEND Internal Medicine
DX: A41.9 Sepsis, unspecified organism (principal); R65.21 Severe sepsis with septic shock; N17.9 Acute kidney failure, unspecified; N13.30 Unspecified hydronephrosis; D50.9 Iron deficiency anemia, unspecified; N10 Acute pyelonephritis; N39.0 Urinary tract infection, site not specified; B96.20 Unspecified Escherichia coli [E. coli] as the cause of diseases classified elsewhere
CPT/HCPCS: 0241U-QW; 36415; 71045-TC-FY; 71250-TC; 74176-TC; 76775-TC; 80053; 81003; 82043; 82150; 82570; 82607; 82728; 82746; 82803; 82962; 83036; 83550; 83605; 83690; 83735; 83935; 84100; 84156; 84300; 84436; 84484; 84703; 85025; 85027; 85610; 85651; 85730; 86140; 86803; 86850; 86900; 86901; 87040; 87086; 87186; 87389; 93005; 93010; 99285-25; J0131